=== PATIENT | male | born 1985 ===

== ENCOUNTER 2021-05-25 18:10 | Emergency (ER) | payer SELFPAY ==
[~2021-05-25] VITALS: Ht 162.6 cm; Wt 87.1 kg
[2021-05-25 18:10] VITALS: BP_SYST 123
[2021-05-25 18:14] VITALS: BP_SYST 123
== END 2021-05-25 18:14 ==
LOC: SED 18:10
DX: Z02.89 Encounter for other administrative examinations (principal)
CPT/HCPCS: 99283